=== PATIENT | female | born 1970 | race Two or more races ===

== ENCOUNTER 2017-06-03 07:41 | Outpatient (CLI) | payer OTHER ==
[~2017-06-03 07:41] MED LIST: AMOX1TAB12 PO; FLONASE16 GM NASAL; FLONASE16 GM NS; GILTUSS TR TAB1 EACH PO; ZITHROMAX TRI-500 MG PO; ZITHROMAX200 MG PO; ZYRTEC10 MG PO; [UNRECOGNIZED DRUG - OTHER]; [UNRECOGNIZED DRUG - OTHER] OT
== END 2017-06-03 08:46 | disposition home or self-care (01) ==
LOC: LAB 07:41
DX: Z00.00 Encounter for general adult medical examination without abnormal findings (principal); I10 Essential (primary) hypertension; E03.9 Hypothyroidism, unspecified; E11.9 Type 2 diabetes mellitus without complications

== ENCOUNTER 2017-06-10 13:31 | Outpatient (CLI) | payer OTHER | END 2017-06-10 16:55 | disposition home or self-care (01) | LOC: MAMO-SONO 13:31 | DX: N64.59 Other signs and symptoms in breast (principal); N64.89 Other specified disorders of breast; Z12.31 Encounter for screening mammogram for malignant neoplasm of breast ==

== ENCOUNTER 2018-01-11 10:40 | Emergency (ER) | payer OTHER ==
[~2018-01-11] VITALS: Ht 160 cm; Wt 72.1 kg
[2018-01-11] MEDS ORDERED: TUSSI PRES-B L120 M1 PO (13:25)
[2018-01-11] MEDS ORDERED: ZITHROMAX TRI-500 MG PO (13:25)
== END 2018-01-11 13:33 | disposition home or self-care (01) ==
LOC: ER 10:40
DX: B34.9 Viral infection, unspecified (principal); I10 Essential (primary) hypertension

== ENCOUNTER 2018-06-07 15:08 | Outpatient (CLI) | payer OTHER ==
[~2018-06-07 15:08] MED LIST changes: +TUSSI PRES-B L120 M1 PO
== END 2018-06-07 18:00 | disposition home or self-care (01) ==
LOC: LAB 15:08
DX: J31.2 Chronic pharyngitis (principal); Z11.3 Encounter for screening for infections with a predominantly sexual mode of transmission

== ENCOUNTER 2018-08-03 12:31 | Outpatient (CLI) | payer OTHER | END 2018-08-03 12:37 | disposition home or self-care (01) | LOC: LAB 12:31 | DX: J11.1 Influenza due to unidentified influenza virus with other respiratory manifestations (principal); J11.89 Influenza due to unidentified influenza virus with other manifestations ==

== ENCOUNTER 2018-09-29 14:33 | Outpatient (CLI) | payer OTHER | END 2018-09-29 14:42 | disposition home or self-care (01) | LOC: MAMO-SONO 14:33 | DX: N60.11 Diffuse cystic mastopathy of right breast (principal); N60.12 Diffuse cystic mastopathy of left breast; R10.31 Right lower quadrant pain; R10.32 Left lower quadrant pain ==

== ENCOUNTER 2019-03-17 10:09 | Outpatient (CLI) | payer OTHER | END 2019-03-17 10:13 | disposition home or self-care (01) | LOC: LAB 10:09 | DX: J11.1 Influenza due to unidentified influenza virus with other respiratory manifestations (principal); J06.9 Acute upper respiratory infection, unspecified ==

== ENCOUNTER 2019-04-12 08:15 | Outpatient (CLI) | payer OTHER | END 2019-04-12 17:31 | disposition home or self-care (01) | LOC: LAB 08:15 | DX: E78.49 Other hyperlipidemia (principal); E55.9 Vitamin D deficiency, unspecified; Z00.00 Encounter for general adult medical examination without abnormal findings; R42 Dizziness and giddiness ==

== ENCOUNTER 2019-11-29 06:00 | Outpatient (CLI) | payer OTHER | END 2019-11-29 14:11 | disposition home or self-care (01) | LOC: PPH VACUNA 06:00 | DX: Z23 Encounter for immunization (principal) ==

== ENCOUNTER 2020-02-07 15:06 | Outpatient (CLI) | payer OTHER | END 2020-02-07 15:13 | disposition home or self-care (01) | LOC: MAMO-SONO 15:06 | PROVIDERS: ATTEND Surgery | DX: N60.11 Diffuse cystic mastopathy of right breast (principal); N60.12 Diffuse cystic mastopathy of left breast ==

== ENCOUNTER 2020-04-02 06:33 | Emergency (ER) | payer OTHER ==
[~2020-04-02] VITALS: Ht 162.6 cm; Wt 71.7 kg
[2020-04-02] MEDS ORDERED: ZYR (06:46)
== END 2020-04-02 11:05 | disposition home or self-care (01) ==
LOC: ER 06:33
DX: U07.1 COVID-19 (principal); B34.9 Viral infection, unspecified

== ENCOUNTER 2020-04-17 08:33 | Outpatient (CLI) | payer OTHER ==
[~2020-04-17 08:33] MED LIST changes: +ZYR
== END 2020-04-17 08:42 | disposition home or self-care (01) ==
LOC: LAB 08:33
PROVIDERS: ATTEND General Practice
DX: R05 Cough (principal); E03.8 Other specified hypothyroidism; E50.9 Vitamin A deficiency, unspecified; E78.3 Hyperchylomicronemia; R07.0 Pain in throat; A53.9 Syphilis, unspecified

== ENCOUNTER 2020-07-25 08:16 | Outpatient (CLI) | payer OTHER | END 2020-07-25 18:00 | disposition home or self-care (01) | LOC: LAB 08:16 | PROVIDERS: ATTEND General Practice | DX: R05 Cough (principal); R50.9 Fever, unspecified; R06.02 Shortness of breath; Z01.818 Encounter for other preprocedural examination; Z20.828 Contact with and (suspected) exposure to other viral communicable diseases ==

== ENCOUNTER → 2020-09-03 | Outpatient (CLI) | payer OTHER | END | disposition home or self-care (01) | LOC: RAD 16:05 | PROVIDERS: ATTEND Physical Medicine & Rehabilitation | DX: M77.11 Lateral epicondylitis, right elbow (principal) ==

== ENCOUNTER 2020-12-10 08:00 | Outpatient (CLI) | payer OTHER | END 2020-12-10 08:30 | disposition home or self-care (01) | LOC: PPH VACUNA 08:00 | PROVIDERS: ATTEND Emergency Medicine Pediatric Emergency Medicine | DX: Z23 Encounter for immunization (principal) ==

== ENCOUNTER 2021-06-24 07:07 | Outpatient (CLI) | payer OTHER | END 2021-06-24 07:12 | disposition home or self-care (01) | LOC: LAB 07:07 | DX: E78.5 Hyperlipidemia, unspecified (principal); E55.9 Vitamin D deficiency, unspecified; N39.0 Urinary tract infection, site not specified; R42 Dizziness and giddiness; R10.2 Pelvic and perineal pain; Z00.00 Encounter for general adult medical examination without abnormal findings ==

== ENCOUNTER 2021-07-17 09:30 | Outpatient (CLI) | payer OTHER | END 2021-07-17 09:34 | disposition home or self-care (01) | LOC: MAMO-SONO 09:30 | PROVIDERS: ATTEND General Practice | DX: N64.4 Mastodynia (principal) ==

== ENCOUNTER 2021-07-31 09:13 | Outpatient (CLI) | payer OTHER | END 2021-07-31 09:14 | disposition home or self-care (01) | LOC: LAB 09:13 | PROVIDERS: ATTEND General Practice | DX: R07.0 Pain in throat (principal) ==